=== PATIENT | female | born 1955 | race Caucasian/White ===

== ENCOUNTER 2020-05-12 09:29 | Outpatient (CLI) | payer MEDICARE, BC, SELFPAY ==
--- NOTE | 2020-05-12 08:30 | DI.RAD_ITS ---
EXAM: XR HAND RT COMPLETE CLINICAL HISTORY: eval R hand pain, RSF clicking. TECHNIQUE: 2D digital imaging was performed. COMPARISON: No exams were available for comparison FINDINGS: The carpal region is unremarkable. The metacarpophalangeal joints are unremarkable. There is modera te to severe narrowing of the interphalangeal joints of the fingers as well as some. There is periar ticular spurring. The findings are greatest at the little finger and distal interphalangeal joint of the index finger. No bony erosions seen. 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 DATA REPOSITORY: RADIATION DOSE DELIVERED:
== END 2020-05-12 09:49 ==
PROVIDERS: PCP Family Medicine; Referring Provider Family Medicine; Visit Provider Student in an Organized Health Care Education/Training Program
DX: M79.641 Pain in right hand (principal); M19.041 Primary osteoarthritis, right hand
CPT/HCPCS: 99203; 73130

== ENCOUNTER 2020-05-23 08:10 | Day surgery (SDC) | payer MEDICARE, BC, SELFPAY ==
--- NOTE | 2020-05-23 07:21 | PDOC.DSDIS_ITS ---
Discharge Plan Disposition Patient Disposition: HOME Condition: Good Discharge Details Reason For Visit: RRF and RMF Trigger Finger Attending Provider: Chris Adorno Primary Care Provider: Deena Mosqueda Home Meds and New Rx's Prescriptions: New acetaminophen 500 mg tablet 1,000 mg PO Q8H PRN (Reason: pain) Qty: 60 RF: 3 ibuprofen 600 mg tablet 600 mg PO TID PRNQty: 60 RF: 3 Continued fluticasone propionate 50 mcg/actuation spray,suspension 2 spray PATRICIO DAILY RF: 0 budesonide-formoterol [Symbicort] 80-4.5 mcg/actuation HFA aerosol inhaler See Rx Instructions IH DAILY RF: 0 azelastine 0.15 % (205.5 mcg) spray,non-aerosol 2 spray PATRICIO BID RF: 0 montelukast [Singulair] 10 mg tablet 10 mg PO DAILY RF: 0 levocetirizine [Xyzal] 5 mg tablet 5 mg PO DAILY RF: 0 calcium carbonate-vitamin D3 200 mg (500 mg) -400 unit capsule 1 cap PO DAILY RF: 0 cholecalciferol (vitamin D3) 50 mcg (2,000 unit) tablet,chewable 50 mcg PO DAILY RF: 0 ascorbic acid (vitamin C) 1,000 mg tablet extended release 1,000 mg PO DAILY RF: 0 Discharge Instructions Stand Alone Forms: Kyree Gibbons Finger Release Referrals: Chris Adorno MD [ [facility] STAFF PHYSICIAN] - Activity:: Elevate Remove Dressings/Wound Care:: 48 hours Shower/Bathe:: 48 hours Diet:: As Tolerated Discharge Orders Discharge Orders: Discharge Order (Routine); Ordered 05/23/20 Ordered By: Chris Adorno DS: Diagnosis Discharge Diagnosis (1) Trigger finger, right ring finger: Status: Acute (2) Trigger finger, right middle finger: Status: Acute
[2020-05-23 08:28] VITALS: BP 159/84; PULSE 85; RESP 18; TEMP 36.1; O2SAT 100
[2020-05-23] MEDS: Sodium Bicarbonate 50 MEQ/50 ML VIAL (09:54)
--- NOTE | 2020-05-23 20:26 | W.PM.OP ---
Date of service: 05/23/20 Time of Service: 09:26 Operative Note Operative Note DATE OF PROCEDURE: 05/23/20 POST-OP DIAGNOSIS: same PROCEDURE: Trigger Finger Release - [finger] Finger SURGEON: Chris Adorno ANESTHESIA: local ESTIMATED BLOOD LOSS: 5 PATHOLOGY: none sent COMPLICATIONS: None Patient was transported to: same day Patient's condition: stable Indications: I have seen Bisi in clinic for symptoms of a trigger finger of the right middle and ring fingers. The catching, clicking, locking, and pain limited function. The diagnosis of trigger finger was evident. The symptoms had not responded to conservative measures. I discussed trigger finger release with the patient. I reviewed the risks of the procedure to include, but not limited to, bleeding, infection, pain, stiffness, incomplete release, damage to nerves or vessels, continued catching, recurrence. Despite these risks, the patient elected to proceed. Findings: There was a tightened A1 rosales which was released. The flexor tendons were inspected and the patient was able to move the finger without any catching, clicking, or locking. This was performed on both the middle and ring fingers without difficulty. Procedure Description: Bisi was greeted in the preoperative holding area where the correct side was identified and marked. The consent was reviewed with the patient and signed. All questions were answered. She was taken back to the operating room. The patient was placed into the supine position on the operating room table with the right arm on an arm board. All bony prominences were well padded. No prophylactic antibiotics were administered since this was a clean, elective hand surgical case. The right arm was then prepped with Chloraprep and draped in a standard fashion with stockinette and extremity drape. A timeout to confirm correct identity, side and site, procedure, allergies, anesthesia, and medical concerns was performed. The surgical site was marked as a longitudinal incision directly over the A1 rosales of both the middle and ring fingers. This was confirmed with palpation during finger flexion. This area, overlying the metacarpal head, was then anesthetized with 1% Lidocaine with epinephrine buffered with sodium bicarbonate. The patient tolerated this well and once the anesthetic had setup, the procedure began. A longitudinal incision was made through skin only, approximately 1cm, starting with the middle finger. The deep tissues were dissected bluntly. Once the A1 rosales and flexor tendons were identified the soft tissue including neurovascular structures were retracted medially and laterally. There were no crossing structures over the A1 rosales. The proximal edge of the rosales was identified and the rosales was incised with tenotomy scissors. There was a release of the tendons once this was fully released. The tendons were then removed from the wound and inspected. Excess synovium was resected. The tendons were then returned and the patient was asked to move the finger into deep flexion and back to extension. There was no recreation of the pre-operative symptoms. The hand was then once more inspected for any A0 rosales or area of possible constriction. The wound was then irrigated and the skin was closed with a 4-0 Nylon. Next attention was turned to the ring finger. The incision was made longintudinally through the skin, approximately 1 cm. The deep tissues were dissected bluntly. Once the A1 rosales and flexor tendons were identified the soft tissue including neurovascular structures were retracted medially and laterally. There were no crossing structures over the A1 rosales. The proximal edge of the rosales was identified and the rosales was incised with tenotomy scissors. There was a release of the tendons once this was fully released. The tendons were then removed from the wound and inspected. Excess synovium was resected. The tendons were then returned and the patient was asked to move the finger into deep flexion and back to extension. There was no recreation of the pre-operative symptoms. The hand was then once more inspected for any A0 rosales or area of possible constriction. The wound was then irrigated and the skin was closed with a 4-0 Nylon. These wounds were then dressed with gauze and a Conform dressing. The patient tolerated the procedure well and was returned to the Same Day Surgery area in a stable condition suffering no known complication.
== END 2020-05-23 10:25 | disposition home or self-care (01) ==
LOC: SUR 08:11
PROVIDERS: PCP Family Medicine; Visit Provider Student in an Organized Health Care Education/Training Program
PROC: (CPT 26055; principal; 2020-05-23 09:30)
DX: M65.341 Trigger finger, right ring finger (principal); M65.331 Trigger finger, right middle finger
CPT/HCPCS: 26055

== ENCOUNTER 2020-10-10 10:04 | Emergency (ER) | payer MEDICARE, BC, SELFPAY ==
[2020-10-10 10:08] VITALS: BP 111/95; PULSE 79; RESP 20; TEMP 36.8; O2SAT 99
[2020-10-10] MEDS: Lidocaine/Epinephri/Tetracaine Topical Gel 3 ML (10:10)
--- NOTE | 2020-10-10 10:10 | ED.GENADUL_ITS ---
Discharge Plan Disposition Patient Disposition: HOME Condition: Good Discharge Details Clinical Impression: Laceration of hand, left Primary Care Provider: Deena Mosqueda ED Provider: Levy Piña Home Meds and New Rx's Prescriptions: Continued fluticasone propionate 50 mcg/actuation spray,suspension 2 spray PATRICIO DAILY RF: 0 budesonide-formoterol [Symbicort] 80-4.5 mcg/actuation HFA aerosol inhaler See Rx Instructions IH DAILY RF: 0 azelastine 0.15 % (205.5 mcg) spray,non-aerosol 2 spray PATRICIO BID RF: 0 montelukast [Singulair] 10 mg tablet 10 mg PO DAILY RF: 0 levocetirizine [Xyzal] 5 mg tablet 5 mg PO DAILY RF: 0 calcium carbonate-vitamin D3 200 mg (500 mg) -400 unit capsule 1 cap PO DAILY RF: 0 cholecalciferol (vitamin D3) 50 mcg (2,000 unit) tablet,chewable 50 mcg PO DAILY RF: 0 ascorbic acid (vitamin C) 1,000 mg tablet extended release 1,000 mg PO DAILY RF: 0 acetaminophen 500 mg tablet 1,000 mg PO Q8H PRN (Reason: pain) Qty: 60 RF: 3 ibuprofen 600 mg tablet 600 mg PO TID PRNQty: 60 RF: 3 Discharge Instructions Instructions: Care For Your Stitches (ED), Laceration (ED) Additional Instructions: Please leave the dressing on for 24 hours, then you may remove and begin cleani ng the wound at least twice a day with soap and water. Continue to apply antibiotic ointment. Do not directly soak the area. Watch for any signs of infection and return if any increasing redness, swelling, pain, drainage. Please return in the next 7 to 10 days for reassessment and removal. If you come back here they will be removed for free. If you notice any worsening of your symptoms, or any new symptoms such as vomiting, diarrhea, fever, chills, shortness of breath, chest pain, numbness, weakness, or fainting , please return immediately to the emergency department for reevaluation. Please follow up with your primary care provider as soon as possible for reassessment and reevaluation. As always, it was a pleasure participating in your medical care today. Referrals: Deena Mosqueda [Primary Care Provider] - Medical Decision Making 65-year-old female presents with a laceration to her ring finger on her left nondominant hand that occurred when she was cutting/removing a pit of an avocado. Patient was sutured with 2 chromic gut simple interrupted sutures, tolerated procedure well. We will update her tetanus here today. Discussed red flags which return. I have extensively reviewed the treatment plan and discharge instructions with the patient. I have addressed all patient concerns at this time. The patient was made aware of what symptoms to monitor for that would warrant a return to the emergency department. Discussed the plan with the patient, they demonstrate verbal understanding and agreement with our assessment and plan at this time. HPI General Date/Time Provider Initiated Documentation: 10/10/20 10:05 . HPI Narrative: 65-year-old female with a past medical history of trigger fingers, presents today for evaluation of laceration on her left nondominant hand. Patient states that she was getting a pit out of an avocado with a clean knife went and sliced through her ring finger. She immediately came to the ER for further evaluation. She denies any numbness or tingling. She denies any weakness. No other complaints at this time. Related Data Home Medications Medication Instructions Recorded Confirmed ascorbic acid (vitamin C) 1,000 mg 1,000 mg PO DAILY tab 05/12/20 10/10/20 tablet,extended release azelastine 0.15 % (205.5 mcg) 2 spray PATRICIO BID 05/12/20 10/10/20 nasal spray budesonide-formoterol HFA 80 See Rx Instructions IH DAILY gm 05/12/20 10/10/20 mcg-4.5 mcg/actuation aerosol inhaler calcium carbonate 200 mg calcium 1 cap PO DAILY 05/12/20 10/10/20 (500 mg)-vitamin D3 400 unit capsule cholecalciferol (vitamin D3) 50 50 mcg PO DAILY 05/12/20 10/10/20 mcg (2,000 unit) chewable tablet fluticasone propionate 50 2 spray PATRICIO DAILY ml 05/12/20 10/10/20 mcg/actuation nasal spray,suspension levocetirizine 5 mg tablet 5 mg PO DAILY 05/12/20 10/10/20 montelukast 10 mg tablet 10 mg PO DAILY 05/12/20 10/10/20 acetaminophen 1,000 mg PO Q8H PRN #60 tab 05/23/20 10/10/20 ibuprofen 600 mg PO TID PRN #60 tab 05/23/20 10/10/20 Previous Rx's Medication Instructions Recorded acetaminophen 1,000 mg PO Q8H PRN #60 tab 05/23/20 ibuprofen 600 mg PO TID PRN #60 tab 05/23/20 Allergies Allergy/AdvReac Type Severity Reaction Status Date / Time Penicillins Allergy Intermediate hives Verified 10/10/20 10:13 codeine AdvReac Intermediate Dizziness/L Verified 10/10/20 10:13 ightheade Review of Systems All systems reviewed & are unremarkable except as noted in HPI and below PFSH Medical History Deviated nasal septum Ganglion cyst of both wrists Surgical History History of nasal septoplasty History of surgical removal of ganglion cyst Trigger finger, right middle finger S/P release: 05/23/2020 Trigger finger, right ring finger S/P release: 05/23/2020 Social History Smoking/Tobacco Use Status: Never Smoking risk assessment performed?: Yes Alcohol Intake: never Substance use type: does not use Do you feel safe at home: Yes Do you feel safe in your relationship?: Yes Exam Narrative Exam Narrative: 1.Const: Well-nourished, Well-developed, appearing stated age 2.Eyes: PERRL, no conjunctival injection, and symmetrical lids. 3.ENT: Atraumatic external nose and ears. Moist MM. Neck: Symmetric, trachea midline, No thyromegaly. 4.CVS: +S1/S2, No murmurs or gallops. Peripheral pulses 2+ and equal in all extremities. Brisk capillary refill in all extremities. 5.RESP: Unlabored respiratory effort. Clear to auscultation bilaterally. No wheezes rales or rhonchi 6.GI: Soft, Nontender/Nondistended, No hepatosplenomegaly. No guarding or rebound. 7.MSK: Normocephalic, Extremities w/o deformity or ttp No cyanosis or clubbing, Normal movement of all extremities, please see skin. 8.Skin: Warm, Dry. Small 1 cm laceration of the left ring finger, no involvement of the tendons or other abnormality. Distal exam demonstrates good two-point discrimination. Brisk capillary refill. Normal flexion and extension strength. 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 Sensation grossly intact, no focal neurologic deficits. 10.Psych: (AAO) x3. Appropriate mood and affect Procedures Laceration Laceration 1: Site: hand Side (If applicable): left Size (cm): 1.75 Description: linear Depth: simple, single layer Local Anesthetic: Lidocaine 1% Amount of anesthesia used (mL): 3 Pre-repair: wound explored, irrigated extensively and deep structures intact Skin layer closed with: other (chromic gut) Size (cm): 5-0 Number of sutures: 2 Technique: simple, interrupted
== END 2020-10-10 10:54 | disposition home or self-care (01) ==
PROVIDERS: Emergency Provider Student in an Organized Health Care Education/Training Program; PCP Family Medicine
DX: S61.215A Laceration without foreign body of left ring finger without damage to nail, initial encounter (principal); W26.0XXA Contact with knife, initial encounter
CPT/HCPCS: 12001; 90471

== ENCOUNTER 2020-10-14 17:39 | Emergency (ER) | payer MEDICARE, BC, SELFPAY ==
--- NOTE | 2020-10-14 17:40 | W.ED.GENAD ---
Discharge Plan Disposition Patient Disposition: HOME Condition: Stable Discharge Details Clinical Impression: Visit for wound check Primary Care Provider: Deena Mosqueda ED Provider: Safia Everett Home Meds and New Rx's Prescriptions: New cephalexin 500 mg capsule 500 mg PO QID Qty: 20 RF: 0 No Action fluticasone propionate 50 mcg/actuation spray,suspension 2 spray PATRICIO DAILY RF: 0 budesonide-formoterol [Symbicort] 80-4.5 mcg/actuation HFA aerosol inhaler See Rx Instructions IH DAILY RF: 0 azelastine 0.15 % (205.5 mcg) spray,non-aerosol 2 spray PATRICIO BID RF: 0 montelukast [Singulair] 10 mg tablet 10 mg PO DAILY RF: 0 levocetirizine [Xyzal] 5 mg tablet 5 mg PO DAILY RF: 0 calcium carbonate-vitamin D3 200 mg (500 mg) -400 unit capsule 1 cap PO DAILY RF: 0 cholecalciferol (vitamin D3) 50 mcg (2,000 unit) tablet,chewable 50 mcg PO DAILY RF: 0 ascorbic acid (vitamin C) 1,000 mg tablet extended release 1,000 mg PO DAILY RF: 0 acetaminophen 500 mg tablet 1,000 mg PO Q8H PRN (Reason: pain) Qty: 60 RF: 3 ibuprofen 600 mg tablet 600 mg PO TID PRNQty: 60 RF: 3 Discharge Instructions Instructions: Finger Laceration (ED) Additional Instructions: continue wound instructions as previously directed. you have been given a wait and see prescription but currently there is no evidence of infection if you develop redness, increasing pain or purulent drainage you can start taking prescription as directed and return for wound check. Referrals: Deena Mosqueda [Primary Care Provider] - Discharge Data Discharge Date/Time-TO BE ENTERED AT DEPARTURE: 10/14/20 18:01 Medical Decision Making wound evaluated and no evidence of obvious infection. there is some scant swelling, wound appears approximated, 2 sutures intact, glue peeling slightly. no surrounding erythema or drainage. will give a wait and see prescription but at this time no evidence of infection. she verbalizes understanding and will closely monitor. she was advised to return for new or worsening symptoms Medical Records Medical records reviewed: Yes I reviewed the patient's medical records. HPI General Mode of arrival: ambulatory. Date/Time Provider Initiated Documentation: 10/14/20 17:40. Limitations to Documentation: no limitations. Information obtained by: patient. HPI Narrative: returns for evaluation of laceration on a kitchen knife that was repaired here with 2 sutures, she was concerned that it was more red and swollen today. she has had no fever. no increased pain, no drainage Related Data Home Medications Medication Instructions Recorded Confirmed ascorbic acid (vitamin C) 1,000 mg 1,000 mg PO DAILY tab 05/12/20 10/10/20 tablet,extended release azelastine 0.15 % (205.5 mcg) 2 spray PATRICIO BID 05/12/20 10/10/20 nasal spray budesonide-formoterol HFA 80 See Rx Instructions IH DAILY gm 05/12/20 10/10/20 mcg-4.5 mcg/actuation aerosol inhaler calcium carbonate 200 mg calcium 1 cap PO DAILY 05/12/20 10/10/20 (500 mg)-vitamin D3 400 unit capsule cholecalciferol (vitamin D3) 50 50 mcg PO DAILY 05/12/20 10/10/20 mcg (2,000 unit) chewable tablet fluticasone propionate 50 2 spray PATRICIO DAILY ml 05/12/20 10/10/20 mcg/actuation nasal spray,suspension levocetirizine 5 mg tablet 5 mg PO DAILY 05/12/20 10/10/20 montelukast 10 mg tablet 10 mg PO DAILY 05/12/20 10/10/20 acetaminophen 1,000 mg PO Q8H PRN #60 tab 05/23/20 10/10/20 ibuprofen 600 mg PO TID PRN #60 tab 05/23/20 10/10/20 cephalexin 500 mg PO QID #20 cap 10/14/20 Previous Rx's Medication Instructions Recorded acetaminophen 1,000 mg PO Q8H PRN #60 tab 05/23/20 ibuprofen 600 mg PO TID PRN #60 tab 05/23/20 cephalexin 500 mg PO QID #20 cap 10/14/20 Allergies Allergy/AdvReac Type Severity Reaction Status Date / Time Penicillins Allergy Intermediate hives Verified 10/14/20 17:49 codeine AdvReac Intermediate Dizziness/L Verified 10/14/20 17:49 ightheade General KASHIF: 4 Review of Systems Constitutional Constitutional: Denies fever(s) Integumentary/Breasts Skin/Breast: Reports lesions (healing laceration) and Denies rash [facility] Medical History Deviated nasal septum Ganglion cyst of both wrists Surgical History History of nasal septoplasty History of surgical removal of ganglion cyst Trigger finger, right middle finger S/P release: 05/23/2020 Trigger finger, right ring finger S/P release: 05/23/2020 Social History Smoking/Tobacco Use Status: Never Smoking risk assessment performed?: Yes Alcohol Intake: never Substance use type: does not use Do you feel safe at home: Yes Do you feel safe in your relationship?: Yes Exam Skin Lesions: lesion noted (healing laceration to left ring finger, no erythema or drainage) Rashes: no rashes Extrem General: other (trace swelling to left index finger)
[2020-10-14 17:42] VITALS: BP 191/106; PULSE 75; RESP 18; TEMP 36.8; O2SAT 100
== END 2020-10-14 18:01 | disposition home or self-care (01) ==
PROVIDERS: Emergency Provider Nurse Practitioner Acute Care; PCP Family Medicine
DX: S61.215A Laceration without foreign body of left ring finger without damage to nail, initial encounter (principal); W26.0XXA Contact with knife, initial encounter; Z48.01 Encounter for change or removal of surgical wound dressing
CPT/HCPCS: 99283

== ENCOUNTER → 2020-11-09 09:45 | Outpatient (BNVA) | payer MEDICARE, BC, SELFPAY | PROVIDERS: PCP Family Medicine; Referring Provider Family Medicine; Visit Provider Student in an Organized Health Care Education/Training Program | DX: M76.62 Achilles tendinitis, left leg (principal) | CPT/HCPCS: 99213 ==

== ENCOUNTER 2020-12-06 12:42 | Emergency (ER) | payer MEDICARE, BC, SELFPAY ==
[2020-12-06 12:48] VITALS: BP 167/95; PULSE 70; RESP 16; TEMP 36.4; O2SAT 100
--- NOTE | 2020-12-06 13:52 | ED.GENADUL_ITS ---
Discharge Plan Disposition Patient Disposition: HOME Condition: Good Discharge Details Clinical Impression: Laceration of left ring finger Primary Care Provider: Deena Mosqueda ED Provider: Aileen Rodriguez Home Meds and New Rx's Prescriptions: No Action fluticasone propionate 50 mcg/actuation spray,suspension 2 spray PATRICIO DAILY RF: 0 budesonide-formoterol [Symbicort] 80-4.5 mcg/actuation HFA aerosol inhaler See Rx Instructions IH DAILY RF: 0 azelastine 0.15 % (205.5 mcg) spray,non-aerosol 2 spray PATRICIO BID RF: 0 montelukast [Singulair] 10 mg tablet 10 mg PO DAILY RF: 0 levocetirizine [Xyzal] 5 mg tablet 5 mg PO DAILY RF: 0 calcium carbonate-vitamin D3 200 mg (500 mg) -400 unit capsule 1 cap PO DAILY RF: 0 cholecalciferol (vitamin D3) 50 mcg (2,000 unit) tablet,chewable 50 mcg PO DAILY RF: 0 ascorbic acid (vitamin C) 1,000 mg tablet extended release 1,000 mg PO DAILY RF: 0 cephalexin 500 mg capsule 500 mg PO QID Qty: 20 RF: 0 acetaminophen 500 mg tablet 1,000 mg PO Q8H PRN (Reason: pain) Qty: 60 RF: 3 ibuprofen 600 mg tablet 600 mg PO TID PRNQty: 60 RF: 3 Discharge Instructions Instructions: Finger Laceration (ED) Additional Instructions: Skin glue should stay dry Keep bandage covered, you may change every other day Wear gloves when showering Would likely be completely healed within the next 7 days Do not submerge in water Ibuprofen and Tylenol as needed for pain Blood pressure recheck by primary care physician Discharge Data Discharge Date/Time-TO BE ENTERED AT DEPARTURE: 12/06/20 13:36 Medical Decision Making Superficial wound, discussed sutures versus Dermabond and patient prefers skin adhesive Steri-Strips are applied and bandage overlying wound site Tetanus date Return precautions discussed and patient expressed understanding, discharged home stable condition stable vitals aside from mild hypertension which she is instructed to have rechecked by her primary care physician in the outpatient setting Differential Diagnosis Differential Diagnosis: Laceration, abrasion, contusion, fracture HPI This 65-year-old female presents with laceration to her left fourth digit. 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 She denies any additional injuries. The event occurred half an hour prior to arrival. Her tetanus is up-to-date. She denies strength or sensation changes. There is no reported history of. General Date/Time Provider Initiated Documentation: 12/06/20 12:47 . Related Data Home Medications Medication Instructions Recorded Confirmed ascorbic acid (vitamin C) 1,000 mg 1,000 mg PO DAILY tab 05/12/20 12/06/20 tablet,extended release azelastine 0.15 % (205.5 mcg) 2 spray PATRICIO BID 05/12/20 12/06/20 nasal spray budesonide-formoterol HFA 80 See Rx Instructions IH DAILY gm 05/12/20 12/06/20 mcg-4.5 mcg/actuation aerosol inhaler calcium carbonate 200 mg calcium 1 cap PO DAILY 05/12/20 12/06/20 (500 mg)-vitamin D3 400 unit capsule cholecalciferol (vitamin D3) 50 50 mcg PO DAILY 05/12/20 12/06/20 mcg (2,000 unit) chewable tablet fluticasone propionate 50 2 spray PATRICIO DAILY ml 05/12/20 12/06/20 mcg/actuation nasal spray,suspension levocetirizine 5 mg tablet 5 mg PO DAILY 05/12/20 12/06/20 montelukast 10 mg tablet 10 mg PO DAILY 05/12/20 12/06/20 acetaminophen 1,000 mg PO Q8H PRN #60 tab 05/23/20 12/06/20 ibuprofen 600 mg PO TID PRN #60 tab 05/23/20 12/06/20 cephalexin 500 mg PO QID #20 cap 10/14/20 12/06/20 Previous Rx's Medication Instructions Recorded acetaminophen 1,000 mg PO Q8H PRN #60 tab 05/23/20 ibuprofen 600 mg PO TID PRN #60 tab 05/23/20 cephalexin 500 mg PO QID #20 cap 10/14/20 Allergies Allergy/AdvReac Type Severity Reaction Status Date / Time Penicillins Allergy Intermediate hives Verified 12/06/20 12:51 codeine AdvReac Intermediate Dizziness/L Verified 12/06/20 12:51 ightheade General Stated Complaint: Laceration KASHIF: 4 Review of Systems Narrative: Review of systems negative x3 aside from where indicated in HPI, a pically no history of coagulopathy, strength or sensation change. [facility] Medical History Deviated nasal septum Ganglion cyst of both wrists Surgical History History of nasal septoplasty History of surgical removal of ganglion cyst Trigger finger, right middle finger S/P release: 05/23/2020 Trigger finger, right ring finger S/P release: 05/23/2020 Social History Smoking/Tobacco Use Status: Never Smoking risk assessment performed?: Yes Alcohol Intake: never Substance use type: does not use Do you feel safe at home: Yes Do you feel safe in your relationship?: Yes Exam Extrem Hand/finger images: 2 1. 2 superficial 5 mm laceration, strength and sensation intact Course Vital Signs Vital signs: Vital Signs Temperature 36.4 C L 12/06/20 12:48 Pulse 70 12/06/20 12:48 Respiratory Rate 16 12/06/20 12:48 Blood Pressure 167/95 H 12/06/20 12:48 Pulse Oximetry 100 12/06/20 12:48 Temperature 36.4 C L 12/06/20 12:48 Temperature Source Skin 12/06/20 12:48 Pulse 70 12/06/20 12:48 Respiratory Rate 16 12/06/20 12:48 Respiratory Effort Non-Labored 12/06/20 12:48 Blood Pressure 167/95 H 12/06/20 12:48 Blood Pressure Position Sitting 12/06/20 12:48 Pulse Oximetry 100 12/06/20 12:48 Oxygen Delivery Method Room Air 12/06/20 12:48 Oxygen Flow Rate 0 12/06/20 12:48 Pain Level 6 12/06/20 12:48
== END 2020-12-06 13:36 | disposition home or self-care (01) ==
PROVIDERS: Emergency Provider Physician Assistant; PCP Family Medicine
DX: S61.215A Laceration without foreign body of left ring finger without damage to nail, initial encounter (principal); W27.4XXA Contact with kitchen utensil, initial encounter
CPT/HCPCS: 12001

== ENCOUNTER 2021-01-08 10:42 | Outpatient (CLI) | payer MEDICARE, BC, SELFPAY ==
--- NOTE | 2021-01-08 11:18 | DI.RAD_ITS ---
EXAM: XR KNEE RT 4V AP,LAT,JUAREZ,PAT CLINICAL HISTORY: R knee pain. TECHNIQUE: 2D digital imaging was performed. COMPARISON: CR XR KNEE LT 4V AP,LAT,JUAREZ,PAT from 01/08/2021 FINDINGS: There is no evidence of fracture. There is a small amount of increased joint fluid. There is calcif ication at the anterosuperior aspect of the patella quadriceps insertion site. Mild degenerative jozef nges are noted in the medial compartment. No osteophytes. Bone density normal. No ominous osseous lesions evident. IMPRESSION: DATA REPOSITORY: RADIATION DOSE DELIVERED:
--- NOTE | 2021-01-08 11:20 | DI.RAD_ITS ---
EXAM: XR KNEE LT 4V AP,LAT,JUAREZ,PAT CLINICAL HISTORY: eval L knee pain. TECHNIQUE: 2D digital imaging was performed. COMPARISON: No exams were available for comparison FINDINGS: There is no evidence of acute fracture nor joint effusion. There are minimal degenerative changes in the medial compartment. There is a 6 x 4 millimeter calcific density seen just off the lateral aspe ct of the patella, seen on the merchant's view. This may be part of an osteochondral defect at this level. This is just medial to the lateral patellar retinaculum at that level. No osteophytes seen. There is no calcification at the quadriceps insertion on the patella on this side. IMPRESSION: 6 x 4 millimeter calcific densities seen adjacent to the most lateral aspect of the patella, this adj acent to what appears to be a defect in the parent bone at this level. This may represent an osteoch ondral defect. Recommended a follow-up MRI. DATA REPOSITORY: RADIATION DOSE DELIVERED:
--- NOTE | 2021-01-08 11:21 | DI.RAD_ITS ---
EXAM: XR HEEL LT OS CALCIS CLINICAL HISTORY: continued Left distal Achilles pain. TECHNIQUE: 2D digital imaging was performed. COMPARISON: No exams were available for comparison FINDINGS: Two views of the left heel including a lateral view and a Romaine axial view reveal no evidence of frac ture. Moderate size inferior calcaneal spur is noted. There is no calcification in the adjacent carmen ntar fascia. No radiopaque foreign body. 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 There is no coalition across the calcaneocuboid joint. 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 There is no evidence of dorsal talar elena k (which is often seen when there is tarsal coalition due to altered biomechanics). Small inferior calcaneal spur. DATA REPOSITORY: RADIATION DOSE DELIVERED:
--- NOTE | 2021-01-08 11:28 | DI.RAD_ITS ---
EXAM: XR PELVIS AP CLINICAL HISTORY: LEFT HIP PAIN. TECHNIQUE: 2D digital imaging was performed. COMPARISON: No exams were available for comparison FINDINGS: No evidence of pelvic nor hip fracture. However, there is a lucency in the right femoral neck which measures 2.8 by 2.0 cm concerning for a possible lytic bone lesion. No other bone lesions evident in the pelvis. Sacroiliac joints appear unremarkable. Degenerative disc disease in lumbar spine noted IMPRESSION: Abnormal lucency in the right femoral neck measuring 2.8 x 2.0 cm. Possible lytic bone lesion. Jose mmend whole body nuclear bone scan. DATA REPOSITORY: RADIATION DOSE DELIVERED:
== END 2021-01-08 10:43 | disposition home or self-care (01) ==
PROVIDERS: PCP Family Medicine; Referring Provider Family Medicine; Visit Provider Student in an Organized Health Care Education/Training Program
DX: M67.88 Other specified disorders of synovium and tendon, other site (principal); M17.11 Unilateral primary osteoarthritis, right knee; M70.42 Prepatellar bursitis, left knee; M70.41 Prepatellar bursitis, right knee; M89.9 Disorder of bone, unspecified
CPT/HCPCS: 99214; 72170; 73564; 73650

== ENCOUNTER 2021-01-31 01:48 | Outpatient (CLI) | payer MEDICARE, BC, SELFPAY ==
--- NOTE | 2021-01-31 06:45 | DI.MRI_ITS ---
EXAM: MR LOWER JOINT RT WO/W CLINICAL HISTORY: Bony luceney along R femoral neck-seen on xray,LT HIP PAIN,M89.9 TECHNIQUE: Multiplanar multisequence MRI of the knee was performed. Both pre and post contrast infu sed sequences were performed. Contrast injected was Dotarem 13 mL COMPARISON: CR XR PELVIS AP from 01/08/2021 CR XR PELVIS AP from 01/08/2021 FINDINGS: EFFUSION: There is no evidence of hip joint effusion. MARROW:There is no evidence of fracture, bone contusion, nor osteochondral defects.. No evidence of avascular necrosis in the hips. However, there is a bone lesion in the right femoral neck which corresponds to the finding on the rec ent plain radiographs measuring approximately 4 cm length extending from the mid femoral neck level d own to the intertrochanteric region exhibiting heterogeneous internal signal both fat and non-fatty e lements, not associated with cortical breakthrough nor surrounding osseous edema. Lesion exhibits mild internal enhancement. There is no prominent enhancement in the adjacent marrow. Another smaller lesion is seen higher up in the right femoral head which measures approximately 7 x 8 millimeters and has appearance of a probable enchondroma. Mild degenerative changes in hip joint including degenerative subarticular cyst in the anterior super ior acetabulum. There is also increased signal in the anterior superior labrum noted. IMPRESSION: 1. Heterogeneous signal lesion in the right femoral neck which exhibits some internal enhancement. A lthough there is no cortical breakthrough nor surrounding marrow edema this lesion is still somewhat suspicious. Recommend whole body nuclear bone scan to determine activity of this lesion and to deter mine if there are other areas of concern in the skeleton. 2. Second smaller more benign-appearing lesion is seen higher up in the ipsilateral right femoral hea d which is probably a small enchondroma which measures approximately 7 x 8 millimeters. 3. Mild degenerative changes. Some increased signal in the anterior superior labrum. No evidence of paralabral cyst. DATA REPOSITORY:
[2021-01-31] MEDS: Normal Saline Flush 10 ML SYR IVP (09:47)
[2021-01-31] MEDS: Gadoterate meglumine 20 ML VIAL 13 ML IVP (09:48)
== END 2021-01-31 02:08 ==
PROVIDERS: PCP Family Medicine; Visit Provider Student in an Organized Health Care Education/Training Program
DX: M25.551 Pain in right hip (principal); M85.851 Other specified disorders of bone density and structure, right thigh
CPT/HCPCS: 73723; 82565; 82575

== ENCOUNTER 2021-02-07 01:36 | Outpatient (CLI) | payer MEDICARE, BC, SELFPAY ==
--- NOTE | 2021-02-07 07:45 | DI.NM_ITS ---
EXAM: NM BONE SCAN WHOLE BODY GRP CLINICAL HISTORY: Right Femoral Neck Lesion,DISORDER OF BONE,M89.9 TECHNIQUE: Whole body bone scan was performed with IV injection of 25.5 mCi technetium 99 MDP. COMPARISON: CR XR PELVIS AP from 01/08/2021 MR MR LOWER JOINT RT WO/W from 01/31/2021 FINDINGS: For sleep, there is no significant abnormal uptake in the right hip. No significant abnormal uptake evident in the area of the previously described bone lesion in the femoral neck. Also no abnormal fo joseph uptake seen higher up at the level of the 2nd smaller lesion in the the lateral femoral head. There is no abnormal uptake seen in the opposite-left hip nor in the pelvis nor in the spinal column and rib cages nor in the long bones with the exception of some uptake in the region of the left knee which is probably degenerative. Also in the feet probably degenerative. IMPRESSION: 1. No abnormal uptake in the right hip to suggest an aggressive bone lesion. 2. No significant abnormal radiopharmaceutical uptake elsewhere in the skeletal with the exception of some degenerative change in the left knee in both feet.
== END 2021-02-07 01:56 ==
PROVIDERS: PCP Family Medicine; Visit Provider Student in an Organized Health Care Education/Training Program
DX: M89.8X8 Other specified disorders of bone, other site (principal)
CPT/HCPCS: 78306

== ENCOUNTER → 2021-03-05 14:02 | Outpatient (BNVA) | payer MEDICARE, BC, SELFPAY | PROVIDERS: PCP Family Medicine; Referring Provider Family Medicine; Visit Provider Student in an Organized Health Care Education/Training Program | DX: R69 Illness, unspecified (principal) ==

== ENCOUNTER 2022-12-10 04:29 | Emergency (ER) | payer MEDICARE, SELFPAY ==
[2022-12-10] VITALS (37 sets, daily range): BP systolic 129–203; BP diastolic 59–98; PULSE 60–113; RESP 9–22; TEMP 36.4; O2SAT 94–99
--- NOTE | 2022-12-10 04:30 | DI.CT_ITS ---
Exam(s) CT CHEST PE CTA EXAM: CT CHEST PE CTA CLINICAL HISTORY: sob, cough, hx breast CA, r/o clot. TECHNIQUE: Imaging Protocol: CT angiography of the chest was performed using pulmonary embolus rizwan col. Multi planar reconstructions were performed. CONTRAST MATERIAL: Intravenous: Omnipaque 350 Contrast volume: 100 cc COMPARISON: CT,NM NM BONE SCAN WHOLE BODY GRP from 02/07/2021 FINDINGS: CHEST: PULMONARY ARTERIES: There are no intraluminal filling defects to suggest acute pulmonary emboli. LUNGS: There are no infiltrates nor evidence of pulmonary infarction.. No ominous nodules. No radiat ion changes in the anterior left lung in this patient has had left mastectomy. There are no pleural effusions. MEDIASTINUM: There is no hilar nor mediastinal adenopathy. No axillary adenopathy evident. CARDIAC: Heart size is upper normal. There is no pericardial effusion.Caliber of the thoracic aorta is within normal limits. There is no significant shift of the interventricular septum. PARTIALLY VISUALIZED UPPERMOST ABDOMEN: No obvious findings OSSEOUS: No significant osseous lesions.No fractures evident.. IMPRESSION: 1. No evidence of acute pulmonary emboli. No evidence of pulmonary infarction.No pleural effusions. 2. Previous left mastectomy. No ominous pulmonary nodules. No intrathoracic adenopathy. RADIATION DOSE DELIVERED: 320.44mGy.cm Total DLP DATA REPOSITORY: All CT scans at this facility are submitted to the National Radiology Data Registry (NRDR) Dose Index Registry (DIR) with the [employer] ([employer]). RADIATION OPTIMIZATION: All CT scans at this facility use at least one of these dose optimization te chniques: automated exposure control; mA and/or kV adjustment per patient size (includes targeted exa ms where dose is matched to clinical indication); or iterative reconstruction.
--- NOTE | 2022-12-10 04:30 | RT.EKG_ITS ---
APPROVED REPORT Exam: Resting ECG Reason for Exam: chest pain Patient Location: E HR:71 bpm ECG Measurements Heart Rate 71 AXIS RI 181 P 68 QRSd 87 QRS 16 QT 389 T 57 QTc 422 Conclusion Sinus rhythm...normal P axis, V-rate 60- 99 Consider left ventricular hypertrophy...(S V1+R V5/V6) >3.25mV PHysician: Rate 71, sinus rhythm, no evidence of STEMI.
--- NOTE | 2022-12-10 04:44 | ED.GENADUL_ITS ---
Discharge Plan Discharge Details Chief Complaint: Chest Pain Clinical Impression: Chest pain Primary Care Provider: Deena Mosqueda ED Provider: Levy Piña Home Meds and New Rx's Prescriptions: No Action fluticasone propionate 50 mcg/actuation spray,suspension 2 spray PATRICIO DAILY Rx Instructions: administer into each nostril budesonide-formoterol [Symbicort] 80-4.5 mcg/actuation HFA aerosol inhaler See Rx Instructions IH DAILY Rx Instructions: 1 puff daily inhalation daily; azelastine 0.15 % (205.5 mcg) spray,non-aerosol 2 spray PATRICIO BID Rx Instructions: administer into each nostril montelukast [Singulair] 10 mg tablet 10 mg PO DAILY levocetirizine [Xyzal] 5 mg tablet 5 mg PO DAILY calcium carbonate-vitamin D3 200 mg (500 mg) -400 unit capsule 1 cap PO DAILY cholecalciferol (vitamin D3) 50 mcg (2,000 unit) tablet,chewable 50 mcg PO DAILY ascorbic acid (vitamin C) 1,000 mg tablet extended release 1,000 mg PO DAILY cephalexin 500 mg capsule 500 mg PO QID Qty: 20 0RF letrozole 2.5 mg Tablet 2.5 mg PO QDAY lisinopril 30 mg Tablet 15 mg PO DAILY acetaminophen 500 mg tablet 1,000 mg PO Q8H PRN (Reason: pain) Qty: 60 3RF ibuprofen 600 mg tablet 600 mg PO TID PRNQty: 60 3RF Medical Decision Making This is a pleasant 67-year-old female with a past medical history of mild hypertension, breast cancer with mastectomy in 2020, family history of cardiac disease, who presents today for evaluation of chest discomfort. Patient states that over the last few days she has had a mild cough, she was treated by her primary care provider for bronchitis, and she has been on steroids and inhalers for the last few days. Tonight she woke up at 3:30 AM with notable chest heaviness/pressure. By the time EMS arrived her symptoms had resolved. The chest pressure radiated to her left arm and was in her left chest. She denies any tearing or ripping sensations. She has been slightly short of breath with her cough, but denies any exertional dyspnea or exertional chest pain over the last few days. She denies any fever or chills. No other complaints at this time. EMS did note an elevated blood pressure. Eventually patient decided to present to the ER via POV. Exam demonstrates a well-appearing female, no reproducible chest tenderness. Patient is notably hypertensive. Heart rate stable otherwise. No focal neurologic deficits. Differential is highest for cardiac etiology, pneumonia, or PE. Dissection appears clinically less likely. We will evaluate for these concerning etiologies, monitor closely and reassess. If patient's blood pressure remains persistently elevated we will also treat. Currently she borders between hypertensive urgency and emergency. 7:47 AM Blood pressure has gone down, we have given her her home dose of lisinopril. Laboratory work-up has returned normal, troponin normal, proBNP normal showing no signs of heart strain. CTA negative for acute process. There is evidence of mild esophagitis. COVID/flu/RSV are normal. CT scan shows no evidence of pneumonia. On reassessment the patient continues to feel well. She has no chest pain whatsoever. She feels well and would like to go home. We are waiting on repeat delta troponin. I did discuss risks and benefits of admission versus discharge, and at this time patient would like to go home rather than stay for observation. Patient does have a scheduled stress test next month with Dr. Cifuentes already. Patient will be signed out to my colleague for follow-up on repeat troponin. Symptoms at this time appear clinically inconsistent with ACS. PE, or dissection. EKG 4: 37 Rate 71, sinus rhythm, no evidence of STEMI. FINDINGS: Limitations: Mild motion artifact. Pulmonary arteries: No pulmonary embolus is appreciated. Aorta: Ascending aorta mildly ectatic to 3.3 cm. Arterial calcifications. Trachea: Small focus of gas lateral to the trachea, possible volume averaging with the esophagus or tracheal diverticulum. Lungs: No focal consolidation seen. Pleural spaces: No pleural effusion. Heart: Trace pericardial fluid. Mediastinal space: Mild esophageal thickening Lymph nodes: No acute abnormality seen. Diaphragm: Small hiatal hernia. Bones/joints: No acute pertinent abnormality seen. Soft tissues: Left mastectomy. IMPRESSION: 1. No pulmonary embolus is appreciated. 2. Mild esophageal thickening. Correlate clinically for possible esophagitis. Thank you for allowing us to participate in the care of your patient. Dictated and Authenticated by: Em Kang MD 12/10/2022 7:05 AM Eastern Time ([place] & [place]) HPI General Date/Time Provider Initiated Documentation: 12/10/22 04:31 . HPI Narrative: This is a pleasant 67-year-old female with a past medical history of mild hypertension, breast cancer with mastectomy in 2020, family history of cardiac disease, who presents today for evaluation of chest discomfort. Patient states that over the last few days she has had a mild cough, she was treated by her primary care provider for bronchitis, and she has been on steroids and inhalers for the last few days. Tonight she woke up at 3:30 AM with notable chest heaviness/pressure. By the time EMS arrived her symptoms had resolved. The chest pressure radiated to her left arm and was in her left chest. She denies any tearing or ripping sensations. She has been slightly short of breath with her cough, but denies any exertional dyspnea or exertional chest pain over the last few days. She denies any fever or chills. No other complaints at this time. EMS did note an elevated blood pressure. Eventually patient decided to present to the ER via POV. Related Data Home Medications Medication Instructions Recorded Confirmed ascorbic acid (vitamin C) 1,000 mg 1,000 mg PO DAILY 05/12/20 12/06/20 tablet,extended release azelastine 205.5 mcg (0.15 %) 2 spray intranasal BID 05/12/20 12/06/20 nasal spray budesonide-formoterol HFA 80 See Rx Instructions inhalation 05/12/20 12/10/22 mcg-4.5 mcg/actuation aerosol DAILY inhaler (Symbicort) calcium carbonate 200 mg-vitamin 1 cap PO DAILY 05/12/20 12/10/22 D3 10 mcg (400 unit) capsule cholecalciferol (vitamin D3) 50 50 mcg PO DAILY 05/12/20 12/10/22 mcg (2,000 unit) chewable tablet fluticasone propionate 50 2 spray intranasal DAILY 05/12/20 12/10/22 mcg/actuation nasal spray,suspension levocetirizine 5 mg tablet (Xyzal) 5 mg PO DAILY 05/12/20 12/10/22 montelukast 10 mg tablet 10 mg PO DAILY 05/12/20 12/10/22 (Singulair) acetaminophen 500 mg tablet 1,000 mg PO Q8H PRN pain #60 tabs 05/23/20 12/06/20 ibuprofen 600 mg tablet 600 mg PO TID PRN #60 tabs 05/23/20 12/10/22 cephalexin 500 mg capsule 500 mg PO QID #20 caps 10/14/20 12/10/22 letrozole 2.5 mg tablet 2.5 mg PO QDAY 12/10/22 12/10/22 lisinopril 30 mg tablet 15 mg PO DAILY 12/10/22 12/10/22 Previous Rx's Medication Instructions Recorded acetaminophen 500 mg tablet 1,000 mg PO Q8H PRN pain #60 tabs 05/23/20 ibuprofen 600 mg tablet 600 mg PO TID PRN #60 tabs 05/23/20 cephalexin 500 mg capsule 500 mg PO QID #20 caps 10/14/20 Allergies Allergy/AdvReac Type Severity Reaction Status Date / Time Penicillins Allergy Intermediate hives Verified 01/08/21 10:35 codeine AdvReac Intermediate Dizziness/L Verified 01/08/21 10:35 ightheade General Stated Complaint: Chest Pain KASHIF: 3 Review of Systems All systems reviewed & are unremarkable except as noted in HPI and below PFSH All Active Problems (Updated 12/10/22 @ 07:50 by Levy Piña DO) Chest pain (Acute) Bone lesion (Acute) Right femoral neck Prepatellar bursitis of right knee (Acute) Prepatellar bursitis of left knee (Acute) Degenerative joint disease of right knee (Acute) Mild Achilles tendonosis of left lower extremity (Acute) Trigger finger, right ring finger (Acute) S/P release: 05/23/2020 Trigger finger, right middle finger (Acute) S/P release: 05/23/2020 Right hand pain (Acute) 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 3.ENT: Atraumatic external nose and ears. Moist MM. Neck: Symmetric, trachea midline, No thyromegaly. 4.CVS: +S1/S2, No murmurs or gallops. Peripheral pulses 2+ and equal in all extremities. Brisk capillary refill in all extremities. 5.RESP: Unlabored respiratory effort. Clear to auscultation bilaterally. No wheezes rales or rhonchi 6.GI: Soft, Nontender/Nondistended, No hepatosplenomegaly. No guarding or rebound. 7.MSK: Normocephalic/Atraumatic, Extremities w/o deformity or ttp No cyanosis or clubbing, Normal movement of all extremities 8.Skin: Warm, Dry. No rashes or lesions. 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 Sensation grossly intact, no focal neurologic deficits. 10.Psych: (AAO) x3. Appropriate mood and affect Course Vital Signs Vital signs: Vital Signs Temperature 36.4 C L 12/10/22 04:33 Pulse 75 12/10/22 04:33 Respiratory Rate 20 12/10/22 04:33 Blood Pressure 203/94 H 12/10/22 04:33 Pulse Oximetry 98 12/10/22 04:33 Temperature 36.4 C L 12/10/22 04:33 Temperature Source Oral 12/10/22 04:33 Pulse 75 12/10/22 04:33 Respiratory Rate 20 12/10/22 04:33 Respiratory Effort Normal, Non-Labored 12/10/22 04:41 Blood Pressure 203/94 H 12/10/22 04:33 Blood Pressure Position Sitting 12/10/22 04:33 Pulse Oximetry 98 12/10/22 04:33 Oxygen Delivery Method Room Air 12/10/22 04:33 Oxygen Flow Rate 0 12/10/22 04:33
[2022-12-10 05:00] LABS: Abs Immature Grans 0.14 10^3/uL (0.0-0.06); Absolute Basophil Count 0.03 10^3/uL (0.0-0.2); Absolute Lymphocyte Count 1.45 10^3/uL (1.2-3.4); Absolute Monocyte Count 0.25 10^3/uL (0.1-0.8); Absolute Neutrophil Count 8.17 10^3/uL (1.2-6.7); Basophils % 0.3; HCT 38.7 % (36.0-46.0); HGB 12.9 g/dL (11.2-15.7); Immature Grans % 1.4; Lymphocytes % 14.4; MCH 30.6 pg (27.0-33.0); MCHC 33.3 % (32.0-36.0); MCV 92 fL (80-95); MPV 9.9 fL (8.0-11.0); Monocytes % 2.5; Neutrophils % 81.4; Platelet Count 320 10^3/uL (130-400); RBC 4.22 10^6/uL (3.93-5.22); RDW 12.8 % (11.7-14.6); RDW-SD 42.9 fL; WBC 10.04 10^3/uL (4.4-10.8)
[2022-12-10 05:15] LABS: PTT Activated 25.4 sec (21.5-31.9); Prothrombin Time 9.9 sec (9.3-11.0)
[2022-12-10 05:23] LABS: ALT 20 U/L (14-59); AST 14 U/L (15-37); Albumin 3.6 g/dL (3.4-5.0); Alkaline Phosphatase 95 U/L (46-116); Anion Gap 6.9 mmol/L (3-11); BUN 16 mg/dL (7-18); Bilirubin, Total 0.3 mg/dL (0.2-1.0); CO2 28.1 mmol/L (21.0-32.0); CREATININE 0.9 mg/dL (0.55-1.02); Calcium 9.6 mg/dL (8.5-10.1); Chloride 105 mmol/L (98-107); Glucose 127 mg/dL (74-106); NT-proBNP 97 pg/mL (<300); Potassium 4.2 mmol/L (3.5-5.1); Sodium 140 mmol/L (136-145); Total Protein 7.3 g/dL (6.4-8.2); Troponin I < 50 ng/L (<or=60)
[2022-12-10] MEDS: Normal Saline Flush 10 ML SYR IVP (05:33)
[2022-12-10] MEDS: Omnipaque 350 MG/ML 100 ML BTL IJ (05:33)
[2022-12-10 05:34] LABS: COVID-19 PCR Negative (Negative); Influenza A PCR Negative (Negative); Influenza B PCR Negative (Negative); RSV PCR Negative (Negative)
[2022-12-10] MEDS: Normal Saline - Diluent 50 ML VIAL IJ (05:34)
[2022-12-10 05:35] LABS: Source Nasopharynx
[2022-12-10] MEDS: Acetaminophen 500 MG TAB 1000 MG PO (06:05)
[2022-12-10] MEDS: Lisinopril 10 MG TAB 15 MG PO (06:47)
--- NOTE | 2022-12-10 07:06 | DI.VRAD_ITS ---
PROCEDURE INFORMATION: Exam: CTA Chest With Contrast Exam date and time: 12/10/2022 5:33 AM Age: 67 years old Clinical indication: Cough and shortness of breath; Prior surgery; Surgery date: 6+ months; Surgery type: Beast CA w/ mastectomy; Patient HX: SOB, cough, HX breast CA, R/O clot TECHNIQUE: Imaging protocol: Computed tomographic angiography of the chest with contrast. 3D rendering (Not supervised by radiologist): MIP and/or 3D reconstructed images were created by the technologist. Radiation optimization: All CT scans at this facility use at least one of these dose optimization techniques: automated exposure control; mA and/or kV adjustment per patient size (includes targeted exams where dose is matched to clinical indication); or iterative reconstruction. Contrast material: OMNIPAQUE 350; Contrast volume: 100 ml; Contrast route: INTRAVENOUS (IV); COMPARISON: No relevant prior studies are available for comparison. FINDINGS: Limitations: Mild motion artifact. Pulmonary arteries: No pulmonary embolus is appreciated. Aorta: Ascending aorta mildly ectatic to 3.3 cm. Arterial calcifications. Trachea: Small focus of gas lateral to the trachea, possible volume averaging with the esophagus or tracheal diverticulum. Lungs: No focal consolidation seen. Pleural spaces: No pleural effusion. Heart: Trace pericardial fluid. Mediastinal space: Mild esophageal thickening. Lymph nodes: No acute abnormality seen. Diaphragm: Small hiatal hernia. Bones/joints: No acute pertinent abnormality seen. Soft tissues: Left mastectomy. IMPRESSION: 1. No pulmonary embolus is appreciated. 2. Mild esophageal thickening. Correlate clinically for possible esophagitis. Dictated and Authenticated by: Em Kang MD. Ordering:NURY Lockett MD
[2022-12-10 07:52] LABS: Troponin I < 50 ng/L (<or=60)
== END 2022-12-10 10:38 | disposition home or self-care (01) ==
PROVIDERS: Emergency Provider Student in an Organized Health Care Education/Training Program; PCP Family Medicine
DX: R07.89 Other chest pain; I10 Essential (primary) hypertension; R06.02 Shortness of breath; R05.9 Cough, unspecified; Z20.822 Contact with and (suspected) exposure to COVID-19
CPT/HCPCS: 36415; 71275; 80053; 87637; 93005; 96374; 99285; 83880; 84484; 85025; 85610; 85730; 93010; J3490

== ENCOUNTER 2023-07-09 13:56 | Outpatient (CLI) | payer MEDICARE, SELFPAY ==
--- NOTE | 2023-07-09 13:30 | DI.RAD_ITS ---
Exam(s) XR FINGER RT LITTLE EXAM: XR FINGER RT LITTLE CLINICAL HISTORY: finger pain. TECHNIQUE: 2D digital imaging was performed of the right finger. Two views were obtained. PA/AP, o blique, and lateral views were obtained. COMPARISON: No exams were available for comparison FINDINGS: BONES: There is a fracture seen at the posterior aspect of the base of the distal phalanx of the vanessa le finger. There is mild distraction of the fracture. No bony destructive lesion is seen. JOINTS: No dislocation present. Degenerative changes of the little finger are noted with joint space narrowing and osteophytes SOFT TISSUE: Normal. IMPRESSION: Mildly distracted fracture involving the posterior aspect of the base of the distal phalanx of the li ttle finger. DATA REPOSITORY: RADIATION DOSE DELIVERED:
== END 2023-07-09 13:57 | disposition home or self-care (01) ==
LOC: DIORS 13:57
PROVIDERS: PCP Family Medicine; Referring Provider Family Medicine; Visit Provider Student in an Organized Health Care Education/Training Program
DX: M79.646 Pain in unspecified finger(s) (principal); S62.636A Displaced fracture of distal phalanx of right little finger, initial encounter for closed fracture; W19.XXXA Unspecified fall, initial encounter; M20.011 Mallet finger of right finger(s)
CPT/HCPCS: 99213; 73140

== ENCOUNTER 2023-07-23 15:45 | Outpatient (CLI) | payer OTHER, MEDICARE, SELFPAY ==
--- NOTE | 2023-07-23 15:00 | DI.RAD_ITS ---
Exam(s) XR FINGER RT LITTLE EXAM: XR FINGER RT LITTLE INDICATION: little finger f/u. COMPARISON: CR XR FINGER RT LITTLE from 07/09/2023 TECHNIQUE: 2D digital imaging was performed. Two views. FINDINGS: There has been no change in alignment of the fracture of the dorsal plate at the base of the distal p halanx. Degenerative changes with prominent periarticular spurring again noted. DATA REPOSITORY: RADIATION DOSE DELIVERED:
== END 2023-07-23 15:46 | disposition home or self-care (01) ==
LOC: DIORS 15:45
PROVIDERS: PCP Family Medicine; Visit Provider Student in an Organized Health Care Education/Training Program
DX: S62.636D Displaced fracture of distal phalanx of right little finger, subsequent encounter for fracture with routine healing (principal); X58.XXXD Exposure to other specified factors, subsequent encounter
CPT/HCPCS: 73140

== ENCOUNTER 2023-08-12 14:28 | Outpatient (CLI) | payer OTHER, SELFPAY ==
--- NOTE | 2023-08-12 14:00 | DI.RAD_ITS ---
Exam(s) XR FINGER RT LITTLE EXAM: XR FINGER RT LITTLE CLINICAL HISTORY: little finger f/u. TECHNIQUE: 2D digital imaging was performed of the right finger. Two views were obtained. PA/AP an d lateral views were obtained. COMPARISON: CR XR FINGER RT LITTLE from 07/23/2023 FINDINGS: BONES: There does not appear to be any significant change in alignment of the fracture involving the posterior aspect of the base of the distal phalanx of the 5th finger. No bony destructive lesion is seen. JOINTS: No dislocation present. There are marked degenerative changes seen at the DIP and PIP joints of the little finger. SOFT TISSUE: Normal. IMPRESSION: Stable alignment of the fracture involving the posterior aspect of the base of the distal phalanx of the 5th finger. DATA REPOSITORY: RADIATION DOSE DELIVERED:
== END 2023-08-12 14:29 | disposition home or self-care (01) ==
LOC: DIORS 14:29
PROVIDERS: PCP Family Medicine; Visit Provider Student in an Organized Health Care Education/Training Program
DX: S62.636D Displaced fracture of distal phalanx of right little finger, subsequent encounter for fracture with routine healing (principal); X58.XXXD Exposure to other specified factors, subsequent encounter
CPT/HCPCS: 73140

== ENCOUNTER 2023-09-23 14:11 | Outpatient (CLI) | payer OTHER, SELFPAY ==
--- NOTE | 2023-09-23 14:00 | DI.RAD_ITS ---
Exam(s) XR FINGER RT LITTLE EXAM: XR FINGER RT LITTLE CLINICAL HISTORY: F/U FRACTURE. TECHNIQUE: 2D digital imaging was performed. Three views. COMPARISON: CR XR FINGER RT LITTLE from 07/09/2023 CR XR FINGER RT LITTLE from 07/23/2023 CR XR FINGER RT LITTLE from 08/12/2023 FINDINGS: BONES: The previously noted fracture at the dorsal plate of the distal phalanx remains nonunited. No bony destructive lesion is seen. JOINTS: No dislocation present. Severe degenerative changes again noted at the interphalangeal joint s with prominent spurring. SOFT TISSUE: Normal. IMPRESSION: No change in nonunited fracture dorsal plate of the distal phalanx. DATA REPOSITORY: RADIATION DOSE DELIVERED:
== END 2023-09-23 14:12 | disposition home or self-care (01) ==
LOC: DIORS 14:11
PROVIDERS: PCP Registered Nurse Critical Care Medicine; Visit Provider Student in an Organized Health Care Education/Training Program
DX: S62.636D Displaced fracture of distal phalanx of right little finger, subsequent encounter for fracture with routine healing (principal); X58.XXXD Exposure to other specified factors, subsequent encounter
CPT/HCPCS: 73140

== ENCOUNTER 2023-11-18 11:45 | Outpatient (CLI) | payer MEDICARE, SELFPAY ==
--- NOTE | 2023-11-18 08:24 | DI.RAD_ITS ---
Exam(s) XR FINGER RT LITTLE EXAM: XR FINGER RT LITTLE INDICATION: F/U FRACTURE. COMPARISON: CR XR FINGER RT LITTLE from 09/23/2023 TECHNIQUE: 2D digital imaging was performed. Two views. FINDINGS: There has been no change in the fracture at the dorsal base of the distal phalanx given differences i n projection. Prominent spurring again noted at both distal and proximal interphalangeal joints. Ch ronic appearing deformity at the distal aspect of the proximal phalanx. No new abnormalities. DATA REPOSITORY: RADIATION DOSE DELIVERED:
== END 2023-11-18 11:46 | disposition home or self-care (01) ==
LOC: DIORS 11:46
PROVIDERS: PCP Registered Nurse Critical Care Medicine; Referring Provider Registered Nurse Critical Care Medicine; Visit Provider Student in an Organized Health Care Education/Training Program
DX: S62.636D Displaced fracture of distal phalanx of right little finger, subsequent encounter for fracture with routine healing; X58.XXXD Exposure to other specified factors, subsequent encounter
CPT/HCPCS: 99213; 73140

== ENCOUNTER 2025-03-11 17:28 | Emergency (ER) | payer MEDICARE, SELFPAY ==
[2025-03-11 17:29] VITALS: BP 143/83; PULSE 72; RESP 18; TEMP 36.8; O2SAT 97
--- NOTE | 2025-03-11 17:38 | ED.GENADUL_ITS ---
Discharge Plan Disposition Patient Disposition: Home Condition: Stable Discharge Details Clinical Impression: Contusion of right foot Primary Care Provider: Sharon Medrano ED Provider: Levy Cruz Home Meds and New Rx's Prescriptions: Continued budesonide-formoterol [Symbicort] 80-4.5 mcg/actuation HFA aerosol inhaler See Rx Instructions IH DAILY Rx Instructions: 1 puff daily inhalation daily; levocetirizine [Xyzal] 5 mg tablet 5 mg PO DAILY calcium carbonate-vitamin D3 200 mg (500 mg) -400 unit capsule 1 cap PO DAILY cholecalciferol (vitamin D3) 50 mcg (2,000 unit) tablet,chewable 50 mcg PO DAILY ascorbic acid (vitamin C) 1,000 mg tablet extended release 1,000 mg PO DAILY nifedipine 60 mg tablet extended release 60 mg PO DAILY azelastine-fluticasone 137-50 mcg/spray spray,non-aerosol 1 spray intranasal BID Rx Instructions: administer into each nostril letrozole 2.5 mg Tablet 2.5 mg PO QDAY lisinopril 30 mg Tablet 15 mg PO DAILY acetaminophen 500 mg tablet 1,000 mg PO Q8H PRN (Reason: pain) Qty: 60 3RF ibuprofen 600 mg tablet 600 mg PO TID PRNQty: 60 3RF Discharge Instructions Instructions: Minor Contusion ED Additional Instructions: You were seen in the emergency department for the contusion of your right foot, there is no fracture seen on x-ray, please continue to rest, ice, compress and elevate it, take adequate dosing of Tylenol and ibuprofen, follow-up with orthopedics for any persistent pain lasting longer than 2 weeks, return for any signs of neurovascular compromise. Referrals: Sharon Medrano [Primary Care Provider] - Discharge Data Discharge Date/Time-TO BE ENTERED AT DEPARTURE: 03/11/25 19:34 HPI General Date/Time Provider Initiated Documentation: 03/11/25 17:33 . HPI Narrative: 69 year-old female presents to ED today by POV/ambulating with a chief complaint of R foot injury, R-foot dominant, dropped a cutting board on her R foot with onset just prior to arrival. Quality described as swelling to mid-foot, no radiation to inability to ambulate, bruising, proximal pain, numbness/tingling. Severity is described as moderate. Palliating factors include ice pack with some relief. Provoking factors include weight-bearing. Patient not anticoagulated. Related Data Home Medications ?Medication ?Instructions ?Recorded ?Confirmed ascorbic acid (vitamin C) 1,000 mg 1,000 mg PO DAILY 05/12/20 03/11/25 tablet,extended release budesonide-formoterol HFA 80 See Rx Instructions inhalation 05/12/20 03/11/25 mcg-4.5 mcg/actuation aerosol DAILY inhaler (Symbicort) calcium 200 mg (as 1 cap PO DAILY 05/12/20 03/11/25 carbonate)-vitamin D3 10 mcg (400 unit) capsule cholecalciferol (vitamin D3) 50 50 mcg PO DAILY 05/12/20 03/11/25 mcg (2,000 unit) chewable tablet levocetirizine 5 mg tablet (Xyzal) 5 mg PO DAILY 05/12/20 03/11/25 acetaminophen 500 mg tablet 1,000 mg (2 x 500 mg) PO Q8H PRN 05/23/20 03/11/25 pain #60 tabs ibuprofen 600 mg tablet 600 mg PO TID PRN #60 tabs 05/23/20 03/11/25 letrozole 2.5 mg tablet 2.5 mg PO QDAY 12/10/22 03/11/25 lisinopril 30 mg tablet 15 mg PO DAILY 12/10/22 03/11/25 azelastine 137 mcg-fluticasone 50 1 spray intranasal BID 11/18/23 03/11/25 mcg/spray nasal spray nifedipine 60 mg tablet,extended 60 mg PO DAILY 11/18/23 03/11/25 release Previous Rx's ?Medication ?Instructions ?Recorded acetaminophen 500 mg tablet 1,000 mg (2 x 500 mg) PO Q8H PRN 05/23/20 pain #60 tabs ibuprofen 600 mg tablet 600 mg PO TID PRN #60 tabs 05/23/20 Allergies Allergy/AdvReac Type Severity Reaction Status Date / Time Penicillins Allergy Intermediate hives Verified 03/11/25 17:31 codeine AdvReac Intermediate Dizziness/L Verified 03/11/25 17:31 ightheade General Stated Complaint: Orthopedic KASHIF: 4 Review of Systems All systems reviewed & are unremarkable except as noted in HPI and below Exam Narrative Exam Narrative: GENERAL APPEARANCE: Well-nourished, non-toxic, awake and alert, atraumatic, no acute distress. SKIN: Warm, pink, dry, intact, without rashes/lesions/ulcerations. HEAD: Normocephalic, atraumatic, normal hair distribution for gender/age. EYES: Normal conjunctiva, no exudates on lids/lashes. ENT: Nares patent, no circumoral cyanosis, no facial swelling NECK: Supple, trachea midline, painless cervical ROM. LUNGS/CHEST: Non-labored respirations, normal A/P diameter, symmetrical expansion, no chest wall deformity HEART (CV/PV): Regular rate, no peripheral edema, no JVD. ABDOMEN: Soft, non-distended, no guarding. MSK: Normal ROM, no swelling/deformity to bilateral UEs or LEs, moving all extremities without weakness, no cyanosis, spine midline without tenderness, normal curvature, swelling to the midfoot of the right lower extremity, dorsalis pedis pulse 2+, posterior tibialis pulse 2+, able to plantar dorsiflex the foot, no crepitus, no ecchymosis, no proximal bartlett pain, sensation intact distal. NEURO: Mental Status AAOx4 - alert to person, place, time, events No facial droop, no forehead involvement. Motor: No focal weakness - strength 5/5 in bilateral UEs and LEs, proximal and distal, symmetric. Sensory: sensation intact to light touch globally. Gait normal: patient ambulated without ataxia into ED room. PSYCH: euthymic, cooperative, pleasant, appropriate speech Course Vital Signs Vital signs: Vital Signs Temperature 36.8 C 03/11/25 17: Pulse 72 03/11/25 17:29 Respiratory Rate 18 03/11/25 17:29 Blood Pressure 143/83 H 03/11/25 17:29 Pulse Oximetry 97 03/11/25 17:29 Temperature 36.8 C 03/11/25 17:29 Temperature Source Oral 03/11/25 17:29 Pulse 72 03/11/25 17:29 Respiratory Rate 18 03/11/25 17:29 Blood Pressure 143/83 H 03/11/25 17:29 Pulse Oximetry 97 03/11/25 17:29 Medical Decision Making This dictation utilizes [id number] dictation software and may contain unedited grammatical errors. 69 year-old female presents to ED today by POV/ambulating with a chief complaint of R foot injury, R-foot dominant, dropped a cutting board on her R foot with onset just prior to arrival. Quality described as swelling to mid-foot, no radiation to inability to ambulate, bruising, proximal pain, numbness/tingling. Severity is described as moderate. Palliating factors include ice pack with some relief. Provoking factors include weight-bearing. Patients' medical history: [ ]. Family and social history: [ ]. Pertinent exam findings / vital signs include swelling to the midfoot of the right lower extremity, dorsalis pedis pulse 2+, posterior tibialis pulse 2+, able to plantar dorsiflex the foot, no crepitus, no ecchymosis, no proximal bartlett pain, sensation intact distal. Differential / pathologies of concern include contusion, fracture, sprain strain. Diagnostic studies of: - XR R foot-no acute fracture seen. Interventions of: - Jeremiah wrap, recommend RICE therapy and therapeutic dosing Tylenol and ibuprofen. ED Course/Assessment/Plan: 69-year-old female presents after dropping a cutting board on her right foot, she has no evidence of fracture has some swelling without neurovascular compromise, counseled on RICE therapy and using Jeremiah wrap as needed, recommend therapeutic dosing of Tylenol and ibuprofen, strict return criteria for loss of sensation or circulation distal to the injury. Findings not consistent with fracture or neurovascular compromise, Lisfranc injury. Disposition of contusion of right foot. Patient verbalized understanding of the plan and return to ED criteria and engaged in shared decision making. Medical Records Medical records reviewed: Yes I reviewed the patient's medical records. Imaging Data Radiologic Study: Attestation: I personally reviewed and interpreted this imaging study as follows: Imaging: X-Ray Radiologist's impression: EXAM: XR FOOT RT COMPLETE CLINICAL HISTORY: swelling mid-foot; dropped cutting board on foot. TECHNIQUE: 2D digital imaging was performed. COMPARISON: No exams were available for comparison FINDINGS: 3 views No evidence of acute fracture or diastasis of the Lisfranc joint. Bone density normal. No osseous lesions. There are moderate degenerative changes in the great toe metatarsophalangeal joint. Other articulations appear unremarkable. No pes planus. Tiny inferior calcaneal spur. No plantar fascia calcification. Bone density normal. No osseous lesions. IMPRESSION: No acute osseous findings. Some degenerative change incidentally noted in the metatarsophalangeal joint of the great toe. Quality:SDOH Health Related Social Needs: No Data to Display PFSH All Active Problems (Updated 03/11/25 @ 19:25 by YEIMY Miguel) Contusion of right foot (Acute) Closed mallet fracture of distal phalanx of right little finger (Acute 06/24/23) Bone lesion (Acute) Right femoral neck Prepatellar bursitis of right knee (Acute) Prepatellar bursitis of left knee (Acute) Degenerative joint disease of right knee (Acute) Mild Achilles tendonosis of left lower extremity (Acute) Trigger finger, right ring finger (Acute) S/P release: 05/23/2020 Trigger finger, right middle finger (Acute) S/P release: 05/23/2020 Right hand pain (Acute) 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
--- NOTE | 2025-03-11 18:15 | DI.RAD_ITS ---
Exam(s) XR FOOT RT COMPLETE EXAM: XR FOOT RT COMPLETE CLINICAL HISTORY: swelling mid-foot; dropped cutting board on foot. TECHNIQUE: 2D digital imaging was performed. COMPARISON: No exams were available for comparison FINDINGS: 3 views No evidence of acute fracture or diastasis of the Lisfranc joint. Bone density normal. No osseous l esions. There are moderate degenerative changes in the great toe metatarsophalangeal joint. Other a rticulations appear unremarkable. No pes planus. Tiny inferior calcaneal spur. No plantar fascia c alcification. Bone density normal. No osseous lesions. IMPRESSION: No acute osseous findings. Some degenerative change incidentally noted in the metatarsophalangeal soren int of the great toe. DATA REPOSITORY: RADIATION DOSE DELIVERED:
== END 2025-03-11 19:34 | disposition home or self-care (01) ==
PROVIDERS: Emergency Provider Physician Assistant; PCP Registered Nurse
DX: S90.31XA Contusion of right foot, initial encounter (principal); W20.8XXA Other cause of strike by thrown, projected or falling object, initial encounter; Y93.89 Activity, other specified; Y92.89 Other specified places as the place of occurrence of the external cause
CPT/HCPCS: 99283; 73630